=== PATIENT | female | born 1995 | race Two or more races ===

== ENCOUNTER → 2024-09-03 | Outpatient (CLI) | payer OTHER ==
[2024-09-03 15:58] LABS: HEMATOCRIT 37.5 % (36.0-47.0); HEMOGLOBIN 11.5 g/dl (12.0-15.5); MEAN CORPUSCULAR HEMOGLOBIN 24.5 pg (27.0-33.0); MEAN CORPUSCULAR HGB CONC 30.7 g/dl (32.0-36.5); PLATELET COUNT, AUTOMATED 333 10^3/uL (150-450); RED BLOOD COUNT 4.69 10^6/uL (4.00-5.40); WHITE BLOOD COUNT 8.8 10^3/uL (4.0-10.0)
[2024-09-03 16:15] LABS: HEMOGLOBIN A1c 6.8 % (4.0-6.0)
[2024-09-03 16:31] LABS: CREATININE,RANDOM URINE 30.7 MG/DL
[2024-09-03 16:34] LABS: URIC ACID 3.6 MG/DL (3.1-7.8)
[2024-09-03 16:35] LABS: TOTAL PROTEIN,RANDOM URINE < 6.0 MG/DL (0.0-14.0)
[2024-09-03 16:36] LABS: LDH LACTATE DEHYDROGENASE 165 U/L (120-246)
[2024-09-03 16:37] LABS: ALT/SGPT 36 U/L (7.0-40); AST/SGOT 33 U/L (<34); BILIRUBIN,TOTAL 0.3 MG/DL (0.3-1.2); CREATININE FOR GFR 0.38 MG/DL (0.55-1.30); GLOMERULAR FILTRATION RATE > 90.0 (>60)
[2024-09-03 17:02] LABS: HIV 1&2 SCREEN NEGATIVE (NEGATIVE)
[2024-09-03 17:11] LABS: HEPATITIS C VIRUS ABY INDEX 0.19 INDEX (<0.8)
[2024-09-03 17:26] LABS: GC DNA AMPLIFICATION NEGATIVE (NEGATIVE)
[2024-09-04 16:30] LABS: Trichomonas vaginalis (AMP) NOT DETECTED (NEGATIVE)
== END ==
LOC: M PLALAB 13:35
PROVIDERS: ATTEND Obstetrics & Gynecology
DX: O24.111 Pre-existing type 2 diabetes mellitus, in pregnancy, first trimester (principal); Z3A.00 Weeks of gestation of pregnancy not specified; O10.011 Pre-existing essential hypertension complicating pregnancy, first trimester

== ENCOUNTER → 2024-11-06 | Outpatient (CLI) | payer OTHER | LOC: M RAD 13:17 | PROVIDERS: ATTEND Specialist | DX: Z34.92 Encounter for supervision of normal pregnancy, unspecified, second trimester (principal); Z3A.21 21 weeks gestation of pregnancy ==

== ENCOUNTER → 2024-11-26 | Outpatient (CLI) | payer OTHER ==
[2024-11-26 13:39] LABS: PLATELET COUNT, AUTOMATED 315 10^3/uL (150-450)
[2024-11-26 14:05] LABS: ESTIMATED AVERAGE GLUCOSE 137.0 MG/DL (60-110)
[2024-11-26 14:11] LABS: Trichomonas vaginalis (AMP) NOT DETECTED (NEGATIVE)
[2024-11-26 14:14] LABS: HIV 1&2 SCREEN NEGATIVE (NEGATIVE)
[2024-11-26 14:22] LABS: HEPATITIS C VIRUS ABY INDEX 0.02 INDEX (<0.8)
[2024-11-26 14:35] LABS: GC DNA AMPLIFICATION NEGATIVE (NEGATIVE)
== END ==
LOC: M PLALAB 10:56
PROVIDERS: ATTEND Obstetrics & Gynecology
DX: O24.312 Unspecified pre-existing diabetes mellitus in pregnancy, second trimester (principal); Z3A.00 Weeks of gestation of pregnancy not specified

== ENCOUNTER → 2025-01-02 | Outpatient (CLI) | payer OTHER | LOC: M WHC 10:55 | PROVIDERS: ATTEND Obstetrics & Gynecology | DX: O24.313 Unspecified pre-existing diabetes mellitus in pregnancy, third trimester (principal); Z3A.29 29 weeks gestation of pregnancy; O40.3XX0 Polyhydramnios, third trimester, not applicable or unspecified ==

== ENCOUNTER 2025-02-05 13:01 | Observation (INO) | payer OTHER ==
[~2025-02-05] VITALS: Ht 162.6 cm; Wt 106.5 kg
[~2025-02-05 13:01] MED LIST: INSULIN LISPRO (NovoLOG) PER UNIT SC SCH
[2025-02-05 13:22] VITALS: BP 110/64
[2025-02-05] MEDS ORDERED: PRENTAB9 PO (13:22)
[2025-02-05] MEDS ORDERED: HOME MED LIST COMPLETE! XX SCH (13:25)
[2025-02-05] MEDS ORDERED: INSULIN REGULAR IN 0.9 % NACL 100 UNIT in IV 1 EA IV SCH (14:00)
[2025-02-05] MEDS ORDERED: OXYTOCIN INJ 10UNITS/ML 1ML VIAL IV PRN (14:00)
[2025-02-05] MEDS ORDERED: OXYTOCIN DRIP 30 UNITS in IV 1 EA IV PRN ×3 (14:00)
[2025-02-05] MEDS ORDERED: LIDOCAINE 1% MDV 20 ML VIAL INFIL PRN (14:00)
[2025-02-05] MEDS ORDERED: TRANEXAMIC ACID INJection 1,000 MG in NS 100 ML IV PRN (14:00)
[2025-02-05] MEDS ORDERED: CARBOPROST TROMETHAMINE 250 MCG/ML AMP IM PRN (14:00)
[2025-02-05] MEDS ORDERED: OXYTOCIN INJ 10UNITS/ML 1ML VIAL IM PRN (14:00)
[2025-02-05] MEDS ORDERED: NS (Normal Saline) 0.9% 1,000 ML IV SCH (14:00)
[2025-02-05] MEDS ORDERED: METHYLERGONOVINE MALEATE 0.2 MG/ML 1 ML VIAL IM PRN (14:00)
[2025-02-05] MEDS ORDERED: INSULIN IV RATE CHANGE DOCUMENTATION ML/HR XX SCH (14:00)
[2025-02-05 14:20] VITALS: BP 126/81; O2SAT 97
[2025-02-05] MEDS: BETAMETHASONE SOLUSPAN 6 MG/ML 5 ML VIAL IM SCH (14:55)
[2025-02-05 14:58] LABS: TOTAL PROTEIN,RANDOM URINE 15.3 MG/DL (0.0-14.0)
[2025-02-05 15:13] LABS: PLATELET COUNT, AUTOMATED 277 10^3/uL (150-450)
[2025-02-05] MEDS: INSULIN LISPRO (NovoLOG) PER UNIT SC ONE (15:14)
[2025-02-05 16:25] LABS: LDH LACTATE DEHYDROGENASE 245 U/L (120-246)
[2025-02-05 16:26] VITALS: BP 133/70
[2025-02-05 16:26] LABS: ALT/SGPT 22 U/L (7.0-40); AST/SGOT 30 U/L (<34); CREATININE FOR GFR 0.40 MG/DL (0.55-1.30); GLOMERULAR FILTRATION RATE > 90.0 (>60)
[2025-02-05] MEDS: HumuLIN N INSULIN (NovoLIN N) PER UNIT SC SCH (18:28)
[2025-02-05 18:57] VITALS: BP 125/79
[2025-02-05] MEDS: INSULIN LISPRO (NovoLOG) PER UNIT SC SCH (19:05)
[2025-02-05 21:31] VITALS: BP 133/76
[2025-02-05] MEDS: NS (Normal Saline) 0.9% 1,000 ML IV SCH (21:59)
[2025-02-05] MEDS: INSULIN REGULAR IN 0.9 % NACL 100 UNIT in IV 1 EA IV SCH (21:59)
[2025-02-05 23:01] VITALS: BP 118/61
[2025-02-06] VITALS (7 sets, daily range): BP systolic 117–137; BP diastolic 68–84
[2025-02-06] MEDS: ACETAMINOPHEN 325 MG TAB PO PRN (01:03)
[2025-02-06] MEDS: HumuLIN N INSULIN (NovoLIN N) PER UNIT SC ONE (08:06)
[2025-02-06] MEDS: INSULIN LISPRO (NovoLOG) PER UNIT SC SCH (09:24)
[2025-02-06] MEDS: HumuLIN N INSULIN (NovoLIN N) PER UNIT SC SCH (18:40)
[2025-02-06] MEDS: INSULIN IV RATE CHANGE DOCUMENTATION ML/HR XX SCH (19:25)
[2025-02-07 03:07] VITALS: BP 119/71
[2025-02-07 05:01] VITALS: BP 128/73
[2025-02-07 06:09] VITALS: BP 115/59
[2025-02-07 08:12] VITALS: BP 137/75
[2025-02-11] MEDS ORDERED: INSUH10VL SC (08:43)
[2025-02-11] MEDS ORDERED: INSUN SC (08:43)
== END 2025-02-07 14:05 | disposition home or self-care (01) ==
LOC: M LDO 13:01 → M LDI 13:02 → UNDOADMOB 13:58 → M LDI 13:58 → UNDODISOB 02-07 14:05
PROVIDERS: ADMIT Obstetrics & Gynecology; ATTEND Obstetrics & Gynecology
DX: O40.3XX0 Polyhydramnios, third trimester, not applicable or unspecified (principal); O24.414 Gestational diabetes mellitus in pregnancy, insulin controlled; Z3A.34 34 weeks gestation of pregnancy
CPT/HCPCS: 36415; 59025; 76816; 76819; 82247; 82570; 83615; 84156; 84450; 84460; 84550; 85027; 86850; 86900; 86901; 96361; 96372; 96374; G0463; J0702; J1815

== ENCOUNTER → 2025-02-13 | Outpatient (CLI) | payer OTHER ==
[~2025-02-13] MED LIST changes: +INSUH10VL SC; -INSULIN LISPRO (NovoLOG) PER UNIT SC SCH; +INSUN SC; +PRENTAB9 PO
== END ==
LOC: M RAD 10:05
PROVIDERS: ATTEND Obstetrics & Gynecology
DX: O24.319 Unspecified pre-existing diabetes mellitus in pregnancy, unspecified trimester (principal); Z3A.00 Weeks of gestation of pregnancy not specified

== ENCOUNTER → 2025-02-18 | Outpatient (REF) | payer OTHER | LOC: M PLALAB 02-17 11:29 | PROVIDERS: ATTEND Obstetrics & Gynecology | DX: Z34.80 Encounter for supervision of other normal pregnancy, unspecified trimester (principal) ==

== ENCOUNTER 2025-02-25 05:09 | Inpatient (IN) | payer OTHER ==
[2025-02-25] VITALS (10 sets, daily range): BP systolic 115–142; BP diastolic 60–93; TEMP 97.6; O2SAT 97–100
[~2025-02-25] VITALS: Ht 162.6 cm; Wt 110.7 kg
[2025-02-25] MEDS: LR 1,000 ML IV SCH ×2 (06:57→13:00)
[2025-02-25 07:16] LABS: PLATELET COUNT, AUTOMATED 216 10^3/uL (150-450)
[2025-02-25] MEDS: BICITRA 30 ML SOLN UDC PO ONE (07:39)
[2025-02-25] MEDS: ceFAZolin SODIUM 3 GM in DEXTROSE 5% (D5W) MINI-BAG PLU 100 ML IV ONE (07:39)
[2025-02-25] MEDS ORDERED: MORPHINE PRES-FREE INJ 10 MG/10 ML VIAL As Ordered ONE (07:59)
[2025-02-25 08:00] LABS: HIV 1&2 SCREEN NEGATIVE (NEGATIVE)
[2025-02-25] MEDS ORDERED: ACETAMINOPHEN 1000MG/100ML IV BAG As Ordered ONE (08:00)
[2025-02-25] MEDS ORDERED: OXYTOCIN 30UNITS IN 0.9% NaCl 500ML IV BAG IV ONE (08:05)
[2025-02-25 08:08] LABS: HEPATITIS C VIRUS ABY INDEX < 0.02 INDEX (<0.8)
[2025-02-25] MEDS ORDERED: ONDANSETRON 4MG/2ML VIAL As Ordered ONE (08:14)
[2025-02-25] MEDS ORDERED: KETOROLAC 30 MG/ML 1 ML VIAL As Ordered ONE (08:14)
[2025-02-25 08:56] LABS: CORD GAS ABE A -0.8; CORD GAS ABE V -2.2; CORD GAS HCO3 A 25.2 MMOL/L; CORD GAS HCO3 V 22.8 MMOL/L; CORD GAS O2 SAT A 55.6 %; CORD GAS O2 SAT V 75.5 %; CORD GAS PCO2 A 46.5 mmHg; CORD GAS PCO2 V 40.1 mmHg; CORD GAS PH A 7.351 UNITS; CORD GAS PH V 7.373 UNITS; CORD GAS PO2 A 22.2 mmHg; CORD GAS PO2 V 32.0 mmHg; CORD GAS SBC A 22.7 MMOL/L; CORD GAS SBC V 22.1 MMOL/L; CORD GAS TCO2 A 26.6 MMOL/L; CORD GAS TCO2 V 24.0 MMOL/L
[2025-02-25] MEDS ORDERED: ANUSOL HC CREAM 30 GM TOP PRN (09:35)
[2025-02-25] MEDS ORDERED: LR 1,000 ML IV SCH (09:35)
[2025-02-25] MEDS ORDERED: CALCIUM CARBONATE 500 MG CHEW U/D PO PRN (09:35)
[2025-02-25] MEDS ORDERED: RHOGAM 300MCG (1500IU) INJ IM SCH (09:35)
[2025-02-25] MEDS ORDERED: MORPHINE 4 MG/ML 1 ML VIAL IV PRN (09:35)
[2025-02-25] MEDS ORDERED: METHYLERGONOVINE MALEATE 0.2 MG/ML 1 ML VIAL IM PRN (09:35)
[2025-02-25] MEDS ORDERED: IBUP80TA PO (09:59)
[2025-02-25] MEDS ORDERED: COLA100C5 PO (09:59)
[2025-02-25] MEDS ORDERED: PERCOCET PO (09:59)
[2025-02-25] MEDS ORDERED: ONDANSETRON 4MG/2ML VIAL IV PRN (10:00)
[2025-02-25] MEDS ORDERED: NALOXONE INJ 0.4 MG/1 ML VIAL IV PRN ×2 (10:00)
[2025-02-25] MEDS ORDERED: MORPHINE 2 MG/ML 1 ML VIAL IV PRN (10:00)
[2025-02-25] MEDS ORDERED: **NOTE PATIENT COMMENT** MISC XX SCH (10:00)
[2025-02-25] MEDS: OXYTOCIN DRIP 30 UNITS in IV 1 EA IV SCH (10:14)
[2025-02-25] MEDS: OXYTOCIN DRIP 30 UNITS in IV 1 EA IV ONE (10:15)
[2025-02-25] MEDS: diphenhydrAMINE 50 MG/ML VIAL IV PRN (11:40)
[2025-02-25] MEDS: PRENATAL VITAMINS CHEWABLE TABLET PO SCH (11:44)
[2025-02-25] MEDS: SLF 3 ML SYR IV SCH (11:51)
[2025-02-25] MEDS: INSULIN LISPRO (NovoLOG) PER UNIT SC SCH (13:11)
[2025-02-25] MEDS ORDERED: UNRESOLVED CLARIFICATION ENTRY XX SCH (14:00)
[2025-02-25] MEDS: ENOXAPARIN 40 MG/0.4 ML SYRINGE (J1650 PER 10MG) SC SCH (14:43)
[2025-02-25] MEDS: KETOROLAC 30 MG/ML 1 ML VIAL IV SCH (14:44)
[2025-02-25] MEDS: ONDANSETRON 4MG/2ML VIAL IV PRN (16:02)
[2025-02-25] MEDS: LR 800 ML IV ONE (16:16)
[2025-02-25] MEDS: HumuLIN N INSULIN (NovoLIN N) PER UNIT SC SCH (17:30)
[2025-02-25] MEDS: DOCUSATE SODIUM 100 MG CAPSULE PO SCH (21:00)
[2025-02-26 01:47] VITALS: BP 113/58; O2SAT 97
[2025-02-26 05:24] VITALS: BP 99/56; O2SAT 97
[2025-02-26 07:02] LABS: PLATELET COUNT, AUTOMATED 220 10^3/uL (150-450)
[2025-02-26] MEDS: PERCOCET 5MG/325MG TAB PO PRN ×2 (09:04→18:30)
[2025-02-26 10:00] VITALS: BP 133/74; O2SAT 96
[2025-02-26] MEDS: IBUPROFEN 800 MG TAB PO SCH (11:32)
[2025-02-26 14:00] VITALS: BP 141/75; O2SAT 98
[2025-02-26 18:09] VITALS: BP 132/79; O2SAT 98
[2025-02-26 22:00] VITALS: BP 125/64; O2SAT 97
[2025-02-27 02:00] VITALS: BP 138/73; O2SAT 98
[2025-02-27] MEDS: SIMETHICONE 80MG CHEW TAB PO PRN (02:14)
[2025-02-27 06:00] VITALS: BP 118/68; O2SAT 97
[2025-02-27] MEDS ORDERED: MEASLES,MUMPS,RUBELLA VACCINE INJ (MMR-II) SC.IMMUN ONE (09:00)
[2025-02-27] MEDS: ACETAMINOPHEN 500 MG TAB PO PRN (09:28)
[2025-02-27 18:00] VITALS: BP 135/69; O2SAT 98
[2025-02-28 02:00] VITALS: BP 126/67; O2SAT 98
[2025-02-28 06:09] VITALS: BP 132/82; O2SAT 98
[2025-02-28] MEDS: MEASLES,MUMPS,RUBELLA VACCINE INJ (MMR-II) SC.IMMUN ONE (09:20)
== END 2025-02-28 14:20 | disposition home or self-care (01) | DRG 783 ==
LOC: M LDI 05:09 → M OBS 10:51
PROVIDERS: ADMIT Obstetrics & Gynecology; ATTEND Obstetrics & Gynecology
PROC: 0UB70ZZ Excision of Bilateral Fallopian Tubes, Open Approach (ICD-10-PCS; 2025-02-25)
PROC: 0UB10ZZ Excision of Left Ovary, Open Approach (ICD-10-PCS; 2025-02-25)
PROC: 10D00Z1 Extraction of Products of Conception, Low, Open Approach (ICD-10-PCS; principal; 2025-02-25 07:30)
DX: O34.211 Maternal care for low transverse scar from previous cesarean delivery (principal); O24.32 Unspecified pre-existing diabetes mellitus in childbirth; Z37.0 Single live birth; Z3A.37 37 weeks gestation of pregnancy; E66.9 Obesity, unspecified; O99.214 Obesity complicating childbirth; Z30.2 Encounter for sterilization; E11.9 Type 2 diabetes mellitus without complications; Z79.4 Long term (current) use of insulin; N83.202 Unspecified ovarian cyst, left side; O34.83 Maternal care for other abnormalities of pelvic organs, third trimester